=== PATIENT | female | born 1985 | race Two or more races ===

== ENCOUNTER 2025-05-19 10:08 | Emergency (ER) | payer OTHER ==
[2025-05-19 10:16] VITALS: BP 132/64; PULSE 86; RESP 18; TEMP 98.7; BMI 38.6
[2025-05-19 10:56] LABS: ABSOLUTE IMMATURE GRANULOCYTES 0.01 x10^3/uL (0.0-0.031); BASOPHILS # 0.05 x10^3/uL (0.01-0.08); EOSINOPHIL % 1.9 % (0.7-5.8); EOSINOPHILS # 0.10 x10^3/uL (0.04-0.36); MCHC 31.4 g/dl (32.2-35.5); MEAN CELL VOLUME 88.8 fl (79.4-94.8); MEAN PLT VOLUME 12.7 fl (9.4-12.3); MONOCYTE # 0.22 x10^3/uL (0.24-0.86); MONOCYTE % 4.2 % (4.7-12.5); RDW 13.5 % (12.1-16.8)
[2025-05-19 10:58] LABS: URINE APPEARANCE CLEAR; URINE BILIRUBIN NEGATIVE (NEGATIVE); URINE COLOR YELLOW; URINE GLUCOSE (UA) NEGATIVE (NEGATIVE); URINE KETONE TRACE (NEGATIVE); URINE LEUK ESTERASE NEGATIVE (NEGATIVE); URINE NITRITE NEGATIVE (NEGATIVE); URINE PROTEIN NEGATIVE (NEGATIVE); URINE UROBILINOGEN 1.0 mg/dL (0.2-1.0)
[2025-05-19 11:00] LABS: HCG,QUALITATIVE URINE Negative
[2025-05-19 12:10] LABS: ALK PHOS 172.0 U/L (40-150); CO2 24.0 mmol/L (21-32); CREATININE 0.55 mg/dL (0.55-1.3); GLUCOSE,RANDOM 151.0 mg/dL (74-106); SGOT/AST 25.0 U/L (5-34); SGPT/ALT 25.0 U/L (0-55); TOT PROT 7.3 g/dl (6.4-8.2)
[2025-05-19 12:11] LABS: HIV INTERPRETATION NEGATIVE (NEGATIVE)
[2025-05-19 12:12] LABS: HCV DIAGNOSTIC IN-HOUSE W/RFLX NON-REACTIVE (NONREACTIVE)
== END 2025-05-19 13:55 | disposition home or self-care (01) ==
LOC: JER 10:08
DX: R10.31 Right lower quadrant pain (principal)
CPT/HCPCS: 36415; 76830-TC; 80053; 81003; 84703; 85025; 86803; 87086; 87389; 99284-25